=== PATIENT | male | born 1960 | race Two or more races ===

== ENCOUNTER 2018-08-21 07:56 | Outpatient (CLI) | payer BC | END 2018-08-21 08:04 | disposition home or self-care (01) | LOC: SONOGRAMA 07:56 → MAMO-SONO 08:15 | DX: N40.1 Benign prostatic hyperplasia with lower urinary tract symptoms (principal); R33.8 Other retention of urine ==

== ENCOUNTER 2019-06-01 08:27 | Outpatient (CLI) | payer OTHER | END 2019-06-01 08:34 | disposition home or self-care (01) | LOC: SONOGRAMA 08:27 | DX: N40.1 Benign prostatic hyperplasia with lower urinary tract symptoms (principal) ==

== ENCOUNTER 2019-06-01 08:48 | Outpatient (CLI) | payer OTHER | END 2019-06-01 08:54 | disposition home or self-care (01) | LOC: LAB 08:48 | DX: R31.1 Benign essential microscopic hematuria (principal); R97.20 Elevated prostate specific antigen [PSA] ==

== ENCOUNTER → 2019-10-30 14:56 | Outpatient (CLI) | payer OTHER | END | disposition home or self-care (01) | LOC: LAB 14:56 | PROVIDERS: ATTEND Urology | DX: N40.0 Benign prostatic hyperplasia without lower urinary tract symptoms (principal); R97.20 Elevated prostate specific antigen [PSA]; R31.1 Benign essential microscopic hematuria ==